=== PATIENT | female | born 1965 | race Caucasian/White ===

== ENCOUNTER 2018-04-09 15:10 | Emergency (ER) | payer BC ==
[~2018-04-09] VITALS: Ht 165.1 cm; Wt 85.8 kg
[~2018-04-09 15:10] MED LIST: ADVAIR 500/501 DISK IH; ALBUTEROL17 GM IH; LEXAPRO10 MG PO; SINGULAIR10 MG PO
[2018-04-09 16:08] LABS: AMPHETAMINE NEGATIVE (500 ng/mL); BARBITURATES NEGATIVE (200 ng/mL); BENZODIAZEPINES PRESUMPTIVE POSITIVE (150 ng/mL); BUPRENORPHINE NEGATIVE (10 ng/mL); COCAINE NEGATIVE (150 ng/mL); METHADONE NEGATIVE (200 ng/mL); METHAMPHETAMINE NEGATIVE (500 ng/mL); OPIATES (MORPHINE) NEGATIVE (100 ng/mL); OXYCODONE NEGATIVE (100 ng/mL); PHENCYCLIDINE NEGATIVE (25 ng/mL); PROPOXYPHENE NEGATIVE (300 ng/mL); THC CANNABINOIDS NEGATIVE (50 ng/mL); TRICYCLIC ANTIDEPRESSANTS NEGATIVE (300 ng/mL)
[2018-04-09 16:48] LABS: BENZODIAZEPINES, URINE SCREEN Negative (200 ng/mL)
[2018-04-09 16:58] LABS: HEMATOCRIT 43.9 % (36.0-46.0); HEMOGLOBIN 15.3 G/DL (11.9-15.5); MCH 30.9 PG (29.0-34.0); MCHC 34.9 G/DL (30.0-36.0); MCV 88.7 FL (83-99); RBC DIS.WIDTH-CV 12.1 % (11.8-14.6); RBC DIS.WIDTH-SD 39.3 % (39-53); RED BLOOD COUNT 4.95 M/uL (3.80-5.20); WHITE BLOOD COUNT 12.4 K/uL (4.1-10.2)
[2018-04-09 17:08] LABS: CHLORIDE 103 mEq/L (99-109); SODIUM 138 mEq/L (136-147)
[2018-04-09 17:09] LABS: GLUCOSE 96 mg/dL (70-99)
[2018-04-09 17:13] LABS: CREATININE 0.9 mg/dL (0.6-1.3); GFR ESTIMATE (CALCULATED) > 59 mL/min/; SERUM ETHYL ALCOHOL < 10 mg/dL
[2018-04-09 17:14] LABS: UREA NITROGEN (BUN) 9 mg/dL (9-23)
[2018-04-09 17:55] LABS: PLATELET COUNT 153 K/uL (156-360)
[2018-04-09 20:03] VITALS: BP 132/87
== END 2018-04-09 20:06 | disposition home or self-care (01) ==
LOC: EME 15:10
DX: F32.9 Major depressive disorder, single episode, unspecified (principal); F43.23 Adjustment disorder with mixed anxiety and depressed mood; F41.9 Anxiety disorder, unspecified; J45.909 Unspecified asthma, uncomplicated; F17.200 Nicotine dependence, unspecified, uncomplicated
CPT/HCPCS: 80048; 84999; 85027; 90839; 99281; 99284; G0480